=== PATIENT | male | born 2000 | race Two or more races ===

== ENCOUNTER → 2020-11-02 | Day surgery (SDC) | payer OTHER | END | disposition home or self-care (01) | LOC: JRADIR 11:16 | PROVIDERS: ATTEND Orthopaedic Surgery Hand Surgery | PROC: BP18YZZ Fluoroscopy of Right Shoulder using Other Contrast (ICD-10-PCS; principal; 2020-11-02) | PROC: BP38Y0Z Magnetic Resonance Imaging (MRI) of Right Shoulder using Other Contrast, Unenhanced and Enhanced (ICD-10-PCS; 2020-11-02) | DX: M25.511 Pain in right shoulder (principal) | CPT/HCPCS: 23350; 73040-TC-FY; 73222-TC; 77002-TC-FY ==